=== PATIENT | female | born 1995 | race Caucasian/White ===

== ENCOUNTER 2022-02-11 14:30 | Emergency (ER) | payer SELFPAY ==
[~2022-02-11] VITALS: Ht 154.9 cm; Wt 99.8 kg
[2022-02-11 14:35] VITALS: BP_SYST 122
[2022-02-11] MEDS ORDERED: METHADONE HCL 10 MG TABLET PO ONE (15:45)
[2022-02-11 16:51] VITALS: BP_SYST 122
== END 2022-02-11 16:51 ==
LOC: SED 14:30
DX: F11.23 Opioid dependence with withdrawal (principal); Z88.0 Allergy status to penicillin
CPT/HCPCS: 99283